=== PATIENT | female | born 1980 | race Caucasian/White ===

== ENCOUNTER 2024-11-12 15:34 | Emergency (ER) | payer MEDICAID ==
[~2024-11-12] VITALS: Ht 160 cm; Wt 66.0 kg
[2024-11-12 15:53] VITALS: O2SAT 100
[2024-11-12] MEDS ORDERED: DIPH25CA83 MT (17:01)
[2024-11-12] MEDS ORDERED: FAMO-135 MT (17:01)
[2024-11-12] MEDS ORDERED: P50 MT (17:01)
[2024-11-12] MEDS: METHYLPREDNISOLONE SOD SUCC 125MG/2ML (ACT-O-VIAL) IM ONE (17:37)
[2024-11-12] MEDS: FAMOTIDINE 20MG TABLET PO ONE (17:37)
[2024-11-12] MEDS: DIPHENHYDRAMINE 50MG/ML VIAL IM ONE ×2 (17:37→17:51)
[2024-11-12 17:52] VITALS: BP 124/70; PULSE 72; RESP 16; TEMP 36.7; O2SAT 100
== END 2024-11-12 17:56 | disposition home or self-care (01) ==
LOC: ER 15:34
DX: T78.40XA Allergy, unspecified, initial encounter (principal); Z88.1 Allergy status to other antibiotic agents; Z90.49 Acquired absence of other specified parts of digestive tract; Z98.890 Other specified postprocedural states; X58.XXXA Exposure to other specified factors, initial encounter
CPT/HCPCS: 96372; 99284; J1200; J2919; Z7610